=== PATIENT | female | born 1995 | race Two or more races ===

== ENCOUNTER 2021-04-20 10:47 | Outpatient (CLI) | payer OTHER | END 2021-04-20 10:54 | disposition home or self-care (01) | LOC: RAD 10:47 | DX: M99.03 Segmental and somatic dysfunction of lumbar region (principal); M99.01 Segmental and somatic dysfunction of cervical region; M99.02 Segmental and somatic dysfunction of thoracic region ==

== ENCOUNTER 2021-08-12 07:25 | Emergency (ER) | payer OTHER ==
[~2021-08-12] VITALS: Ht 167.6 cm; Wt 51.7 kg
== END 2021-08-12 11:59 | disposition home or self-care (01) ==
LOC: ER 07:25
DX: R10.2 Pelvic and perineal pain (principal); Z98.890 Other specified postprocedural states; Z88.6 Allergy status to analgesic agent

== ENCOUNTER 2021-09-30 08:18 | Outpatient (CLI) | payer OTHER | END 2021-09-30 08:34 | disposition home or self-care (01) | LOC: SONOGRAMA 08:18 | PROVIDERS: ATTEND Specialist | DX: N84.0 Polyp of corpus uteri (principal); N93.8 Other specified abnormal uterine and vaginal bleeding ==

== ENCOUNTER 2022-11-22 08:48 | Emergency (ER) | payer OTHER ==
[~2022-11-22] VITALS: Ht 182.9 cm; Wt 54.9 kg
[2022-11-22] MEDS ORDERED: LEVOXYL50 MCG (09:07)
== END 2022-11-22 10:28 | disposition home or self-care (01) ==
LOC: ER 08:48
DX: N92.3 Ovulation bleeding (principal); E03.9 Hypothyroidism, unspecified; Z88.8 Allergy status to other drugs, medicaments and biological substances